=== PATIENT | female | born 1955 | race Caucasian/White ===

== ENCOUNTER 2022-01-23 16:28 | Emergency (ER) | payer MEDICARE, OTHER ==
[2022-01-23] MEDS ORDERED: Diphtheria,Pertussis(Acell),Tetanus Vaccine 0.5 ML Syringe IM ONE (16:38)
[2022-01-23] MEDS ORDERED: Lidocaine 1% 5 ML VIAL ONE (16:52)
[2022-01-23] MEDS ORDERED: Lidocaine 1% 5 ML VIAL INJECT ONE (16:55)
[2022-01-23] MEDS ORDERED: Amoxicillin/Clavulanate K 875-125 MG Tab PO ONE (17:15)
== END 2022-01-23 17:29 | disposition home or self-care (01) ==
LOC: KA.ED 16:28
DX: S62.601B Fracture of unspecified phalanx of left index finger, initial encounter for open fracture (principal); Z79.899 Other long term (current) drug therapy; Z79.82 Long term (current) use of aspirin; Z79.4 Long term (current) use of insulin; Z79.84 Long term (current) use of oral hypoglycemic drugs; Z91.018 Allergy to other foods; Z88.4 Allergy status to anesthetic agent; Z91.048 Other nonmedicinal substance allergy status; Z88.8 Allergy status to other drugs, medicaments and biological substances; Z23 Encounter for immunization; W26.8XXA Contact with other sharp object(s), not elsewhere classified, initial encounter
CPT/HCPCS: 12001; 73140-F1; 90471; 90715; 99283; 99283-25; A9270-GY